=== PATIENT | male | born 1960 | race Caucasian/White ===

== ENCOUNTER → 2016-12-03 | Outpatient (CLI) | payer OTHER | LOC: ECHO 11:22 | DX: Z00.01 Encounter for general adult medical examination with abnormal findings (principal) | CPT/HCPCS: ECHO; 93306 ==

== ENCOUNTER 2021-11-23 19:09 | Emergency (ER) | payer OTHER ==
[2021-11-23 19:26] LABS: HEMOGLOBIN 14.6 gm/dl (14.0-17.5); RED BLOOD COUNT 4.22 M/UL (4.20-5.50); WHITE BLOOD COUNT 7.6 K/UL (4.5-11.0)
[2021-11-23 19:55] LABS: BUN/CREATININE RATIO 9 (0-10)
== END 2021-11-23 22:17 | disposition home or self-care (01) ==
LOC: ER1 19:09
PROVIDERS: Physician Assistant
DX: U07.1 COVID-19 (principal); E11.9 Type 2 diabetes mellitus without complications; I10 Essential (primary) hypertension; J44.9 Chronic obstructive pulmonary disease, unspecified; F17.210 Nicotine dependence, cigarettes, uncomplicated
CPT/HCPCS: 70450; 71045; 80053; 82550; 82553; 83605; 84484; 85025; 93005; 96374; 99285; J1885; U0002